=== PATIENT | female | born 1980 | race Caucasian/White ===

== ENCOUNTER → 2016-04-07 | Outpatient (CLI) | payer BC ==
--- OUTSIDE RECORDS SUMMARY | 2016-04-07 10:55 | XMS REPORT ---
Author MILAD Brenner Organization [employer] Address Unknown Phone Unavailable Care Team Providers Care Software Support Engineer Name Role Phone MILAD BLAKELY CP Unavailable Allergies, Adverse Reactions, Alerts Substance Reaction Event Type Vicodin vomiting Drug Allergy Problems No Known Problems Medications Medication Code System Code Instructions Start Date End Date Status Dosage [facility] [address]15 28-0.8 MG Orally not defined Metformin HCl [facility] [address]-64 500 MG Orally Twice a day 1 tablet with meals Results No Known Results Summary Purpose [employer] Submission
--- NOTE | 2016-04-07 12:10 | Diagnostic Imaging Report ---
EXAMINATION: Bilateral breast ultrasound. INDICATION: History of breast lumps in the past with no current complaints at this time. The patient is breast-feeding. COMPARISON: The previous mammogram report is available dated 09/30/2014 which described likely superimposition of parenchyma resulting in an asymmetry in the medial aspect of the right breast. FINDINGS: The four-quadrants and retroareolar region of each breast were scanned. Unremarkable breast parenchyma is seen with no solid mass or suspicious lesion. IMPRESSION: Negative study. The previous mammograms were requested to assess the previously described asymmetry in the medial aspect of the right breast and to decide if a diagnostic mammogram is needed. ACR BI-RADS Category 0: Incomplete. (Needs additional imaging evaluation). Dictated by: Dictated on workstation # [id number]
== END ==
LOC: RAD 10:51
PROVIDERS: ATTEND Family Medicine
DX: R92.8 Other abnormal and inconclusive findings on diagnostic imaging of breast (principal)

== ENCOUNTER → 2016-04-28 | Outpatient (CLI) | payer BC ==
--- NOTE | 2016-04-28 20:01 | Diagnostic Imaging Report ---
Bilateral diagnostic mammogram. The current study was also evaluated with a Computer Aided Detection (CAD) system. INDICATION: Breast lump. COMPARISON: 09/28/2014. FINDINGS: The breasts are composed of heterogeneously dense parenchyma in a diffuse fashion, which has increased in density compared to prior exam. This is symmetric bilaterally and is compatible with current status of . There is no suspicious mass that has developed or suspicious calcifications within the area of previously seen asymmetry in the central slightly medial aspect of the right CC projection. IMPRESSION: Increased density of the fibroglandular tissue bilaterally in a diffuse fashion related to with no definite suspicious lesion seen. ACR BI-RADS Category 2: Benign findings. Result letter will be mailed to the patient. Note: At least 10% of breast cancer is not imaged by mammography. Dictated by: Dictated on workstation # [id number]
== END ==
LOC: RAD 11:55
PROVIDERS: ATTEND Family Medicine
DX: N63 Unspecified lump in breast (principal)
CPT/HCPCS: 77066

== ENCOUNTER 2017-03-29 07:00 | Emergency (ER) | payer BC ==
[~2017-03-29] VITALS: Ht 167.6 cm; Wt 113.9 kg
--- OUTSIDE RECORDS SUMMARY | 2017-03-29 07:04 | XMS REPORT ---
Author Author MILAD BLAKELY [facility] Address [address] [place] [address] Care Team Providers Care Elephant Keeper Name Role Phone MILAD BLAKELY Unavailable PROBLEMS Type Condition ICD9-CM Code [id number] Code Onset Dates Condition Status SNOMED Code Problem Abnormal mammogram R92.8 Active 522947660 Problem Patient is a currently breast-feeding mother Z39.1 Active 974372962 Problem Abnormal bilirubin test E80.6 Active 279735056 Problem PCOS (polycystic ovarian syndrome) E28.2 Active 21909473 ALLERGIES No Information SOCIAL HISTORY Never Assessed PLAN OF CARE VITAL SIGNS MEDICATIONS Unknown Medications RESULTS Name Result Date Reference Range Mammogram Dx, Bilateral 2016-04-28 PROCEDURES No Known procedures IMMUNIZATIONS No Known Immunizations MEDICAL (GENERAL) HISTORY Type Description Date Medical History PCOS (Polycystic Ovary Syndrome) Surgical History cholecystectomy Surgical History left knee arthroscopy 1995 Surgical History inguinal hernia repair 1986 Surgical History wisdom teeth extraction 1997 Surgical History Tonsillectomy/Adenoidectomy Hospitalization History Childbirth Only
--- OUTSIDE RECORDS SUMMARY | 2017-03-29 07:04 | XMS REPORT ---
Author Author MILAD BLAKELY [facility] [employer] Address Unknown Phone Unavailable Care Team Providers Care Air Pollution Compliance Inspector Name Role Phone MILAD BLAKELY Unavailable Allergies No Known Allergies Problems Problem Type Condition Code Onset Dates Condition Status Assessment Routine follow-up Z39.2 Active Assessment PCOS (polycystic ovarian syndrome) E28.2 Active Problem PCOS (polycystic ovarian syndrome) E28.2 Active Medications No Known Medications Procedures Procedure Coding System Code Date ASSAY THYROID STIM HORMONE CPT-4 28627 Dec 25, 2015 COMPLETE CBC W/AUTO DIFF WBC CPT-4 68057 Dec 25, 2015 GLYCATED HEMOGLOBIN TEST CPT-4 71730 Dec 25, 2015 VENIPUNCT, ROUTINE* CPT-4 14357 Dec 25, 2015 COMPREHEN METABOLIC PANEL CPT-4 03426 Dec 25, 2015 Results Name Result Date Reference Range Unit Abnormality Flag TSH ----TSH 1.510 13009747 0.450-4.500 uIU/mL CBC ----Basos 1 48491909 % ----MCV 85 93096459 79-97 fL ----Hematocrit 42.3 19813358 34.0-46.6 % ----Eos 2 60659233 % ----MCHC 34.0 17641277 31.5-35.7 g/dL ----Monocytes 9 23148688 % ----MCH 29.0 08509544 26.6-33.0 pg ----Lymphs 36 87273963 % ----Eos (Absolute) 0.1 28075519 0.0-0.4 x10E3/uL ----WBC 6.0 75273402 3.4-10.8 x10E3/uL ----Monocytes(Absolute) 0.6 10009163 0.1-0.9 x10E3/uL ----Lymphs (Absolute) 2.2 90098833 0.7-3.1 x10E3/uL ----Hemoglobin 14.4 38684293 11.1-15.9 g/dL ----Neutrophils (Absolute) 3.1 57049685 1.4-7.0 x10E3/uL ----RBC 4.97 52034728 3.77-5.28 x10E6/uL ----Immature Grans (Abs) 0.0 26011374 0.0-0.1 x10E3/uL ----Immature Granulocytes 0 48699253 % ----Neutrophils 52 50468919 % ----Baso (Absolute) 0.0 77527985 0.0-0.2 x10E3/uL ----RDW 13.3 13582422 12.3-15.4 % ----Platelets 293 20104125 150-379 x10E3/uL ROUTINE VENIPUNCTURE A1C ----Hemoglobin A1c 5.4 44014096 4.8-5.6 % CMP ----Potassium, Serum 4.1 85147249 3.5-5.2 mmol/L ----Sodium, Serum 141 23928676 136-144 mmol/L ----BUN/Creatinine Ratio 22 20151225 8-20 H ----eGFR If Africn Am 117 55394749 >59 mL/min/1.73 ----eGFR If NonAfricn Am 101 70157688 >59 mL/min/1.73 ----Creatinine, Serum 0.76 35682419 0.57-1.00 mg/dL ----BUN 17 20151225 6-20 mg/dL ----Glucose, Serum 80 25699580 65-99 mg/dL ----AST (SGOT) 32 20151225 0-40 IU/L ----Globulin, Total 2.5 57635166 1.5-4.5 g/dL ----ALT (SGPT) 41 20151225 0-32 IU/L H ----A/G Ratio 1.8 20151225 1.1-2.5 ----Bilirubin, Total 1.6 11798166 0.0-1.2 mg/dL H ----Alkaline Phosphatase, S 86 57832521 39-117 IU/L ----Carbon Dioxide, Total 21 20151225 18-29 mmol/L ----Calcium, Serum 9.7 20151225 8.7-10.2 mg/dL ----Protein, Total, Serum 7.1 20151225 6.0-8.5 g/dL ----Albumin, Serum 4.6 20151225 3.5-5.5 g/dL ----Chloride, Serum 102 20151225 97-106 mmol/L Summary Purpose eClinicalWorks Submission
--- OUTSIDE RECORDS SUMMARY | 2017-03-29 07:04 | XMS REPORT ---
Author MILAD Brenner Organization [employer] Address Unknown Phone Unavailable Care Team Providers Care Wet Room Supervisor Name Role Phone MILAD BLAKELY CP Unavailable Allergies, Adverse Reactions, Alerts Substance Reaction Event Type Vicodin vomiting Drug Allergy Problems No Known Problems Medications Medication Code System Code Instructions Start Date End Date Status Dosage [facility] [address] 28-0.8 MG Orally not defined Metformin HCl [facility] [address]-31 500 MG Orally Twice a day 1 tablet with meals Results No Known Results Summary Purpose eClinicalWorks Submission
--- OUTSIDE RECORDS SUMMARY | 2017-03-29 07:04 | XMS REPORT ---
Author Author MILDA BLAKELY [facility] Address [address] [place] [address] Care Team Providers Care Manager Human Capital Name Role Phone MILAD BLAKELY Unavailable PROBLEMS Type Condition ICD9-CM Code UPZ82-IQ Code Onset Dates Condition Status SNOMED Code Problem Abnormal mammogram R92.8 Active 947928202 Problem Patient is a currently breast-feeding mother Z39.1 Active 956603795 Problem Abnormal bilirubin test E80.6 Active 401336196 Problem PCOS (polycystic ovarian syndrome) E28.2 Active 64032434 ALLERGIES No Information SOCIAL HISTORY Never Assessed PLAN OF CARE VITAL SIGNS MEDICATIONS Unknown Medications RESULTS Name Result Date Reference Range Ultrasound : Breast(s), Both 2016-04-07 PROCEDURES No Known procedures IMMUNIZATIONS No Known Immunizations MEDICAL (GENERAL) HISTORY Type Description Date Medical History PCOS (Polycystic Ovary Syndrome) Surgical History cholecystectomy Surgical History left knee arthroscopy 1995 Surgical History inguinal hernia repair 1986 Surgical History wisdom teeth extraction 1997 Surgical History Tonsillectomy/Adenoidectomy Hospitalization History Childbirth Only
--- OUTSIDE RECORDS SUMMARY | 2017-03-29 07:04 | XMS REPORT ---
Author Author MILAD BLAKELY [facility] Address [address] [place] [address] Care Team Providers Care Supervisor Hospitality House Name Role Phone MILAD BLAKELY Unavailable PROBLEMS Type Condition ICD9-CM Code JAM69-VC Code Onset Dates Condition Status SNOMED Code Problem Abnormal mammogram R92.8 Active 016681465 Problem Patient is a currently breast-feeding mother Z39.1 Active 041829685 Problem Abnormal bilirubin test E80.6 Active 522519475 Problem PCOS (polycystic ovarian syndrome) E28.2 Active 09199716 ALLERGIES Unknown Allergies SOCIAL HISTORY No smoking Hx information available PLAN OF CARE VITAL SIGNS MEDICATIONS Unknown Medications RESULTS No Results PROCEDURES No Known procedures IMMUNIZATIONS No Known Immunizations
--- OUTSIDE RECORDS SUMMARY | 2017-03-29 07:04 | XMS REPORT ---
Author Author MILAD BLAKELY Organization [facility] Address [address] [place] [address] Care Team Providers Care Laundry Laborer Name Role Phone MILAD BLAKELY Unavailable PROBLEMS Type Condition ICD9-CM Code LEO04-EH Code Onset Dates Condition Status SNOMED Code Problem Abnormal mammogram R92.8 Active 006645325 Problem Patient is a currently breast-feeding mother Z39.1 Active 873321482 Problem Abnormal bilirubin test E80.6 Active 544085668 Problem PCOS (polycystic ovarian syndrome) E28.2 Active 39145775 ALLERGIES Substance Reaction Event Type Date Status Vicodin vomiting/hallucinations Drug Allergy Feb, Active SOCIAL HISTORY Never Assessed PLAN OF CARE Activity Details Follow Up 1 Year with [place] for well woman Reason: VITAL SIGNS Height 65.5 in 2016-03-03 Weight 262.1 lbs 2016-03-03 Temperature 98.2 degrees Fahrenheit 2016-03-03 Heart Rate 84 bpm 2016-03-03 Respiratory Rate 20 2016-03-03 BMI 42.95 kg/m2 2016-03-03 Blood pressure systolic 124 mmHg 2016-03-03 Blood pressure diastolic 84 mmHg 2016-03-03 MEDICATIONS Medication Instructions Dosage Frequency Start Date End Date Duration Status Metformin HCl 500 MG Orally Twice a day 1 tablet with meals 12h 30 days Active [facility] - Active 28-0.8 MG Active Ortho Micronor 0.35 MG Orally Once a day 1 tablet 24h Nov, 30 day(s) Active RESULTS No Results PROCEDURES Procedure Date Ordered Result Body Site ASSAY THYROID STIM HORMONE Mar 03, 2016 GLYCATED HEMOGLOBIN TEST Mar 03, 2016 COMPREHEN METABOLIC PANEL Mar 03, 2016 LIPID PANEL Mar 03, 2016 VENIPUNCT, ROUTINE* Mar 03, 2016 IMMUNIZATIONS No Known Immunizations MEDICAL (GENERAL) HISTORY Type Description Date Medical History PCOS (Polycystic Ovary Syndrome) Surgical History cholecystectomy Surgical History left knee arthroscopy 1995 Surgical History inguinal hernia repair 1986 Surgical History wisdom teeth extraction 1997 Surgical History Tonsillectomy/Adenoidectomy Hospitalization History Childbirth Only
--- OUTSIDE RECORDS SUMMARY | 2017-03-29 07:04 | XMS REPORT ---
Author Author MILAD BLAKELY [facility] Address [address] [place] [address] Care Team Providers Care Heat Treater Apprentice Name Role Phone MILAD BLAKELY Unavailable PROBLEMS Type Condition ICD9-CM Code NLD92-EL Code Onset Dates Condition Status SNOMED Code Problem Abnormal mammogram R92.8 Active 443338946 Problem Patient is a currently breast-feeding mother Z39.1 Active 845575716 Problem Abnormal bilirubin test E80.6 Active 581262921 Problem PCOS (polycystic ovarian syndrome) E28.2 Active 48413208 ALLERGIES No Information SOCIAL HISTORY Never Assessed [...]
--- OUTSIDE RECORDS SUMMARY | 2017-03-29 07:04 | XMS REPORT ---
Author Author MILAD BLAKELY [facility] Address [address] [place] [address] Care Team Providers Care Benefits Clerk Name Role Phone MILAD BLAKELY Unavailable PROBLEMS Type Condition ICD9-CM Code ZTF12-SY Code Onset Dates Condition Status SNOMED Code Problem Abnormal mammogram R92.8 Active 256508301 Problem Patient is a currently breast-feeding mother Z39.1 Active 020368726 Problem Abnormal bilirubin test E80.6 Active 916146319 Problem PCOS (polycystic ovarian syndrome) E28.2 Active 63129593 ALLERGIES No Information SOCIAL HISTORY Never Assessed [...]
--- OUTSIDE RECORDS SUMMARY | 2017-03-29 07:04 | XMS REPORT ---
Author TRI Martinez [facility] e[employer] Address Unknown Phone Unavailable Care Team Providers Care Home Health Care Provider Name Role Phone TRI VIRK CP Unavailable Allergies No Known Allergies Problems Problem Type Condition Code Onset Dates Condition Status Assessment Encounter for immunization Z23 Active Problem PCOS (polycystic ovarian syndrome) E28.2 Active Medications No Known Medications Procedures Procedure Coding System Code Date SINGLE IMMUNIZATION ADMIN CPT-4 80227 Dec 10, 2015 FLUARIX QUAD P-FREE 3 AND UP .50 2015 CPT-4 37263 Dec 10, 2015 Results No Known Results Immunizations Vaccine Administration Date FLUARIX QUAD P-FREE 3 AND UP .50 2015Dec 10, 2015 Summary Purpose eClinicalWorks Submission
--- OUTSIDE RECORDS SUMMARY | 2017-03-29 07:04 | XMS REPORT ---
Author MILAD Brenner Organization [employer] Address Unknown Phone Unavailable Care Team Providers Care Yacht Hand Name Role Phone MILAD BLAKELY CP Unavailable Allergies, Adverse Reactions, Alerts Substance Reaction Event Type Vicodin vomiting/hallucinations Drug Allergy Problems Problem Type Condition Code Onset Dates Condition Status Assessment Routine follow-up Z39.2 Active Assessment PCOS (polycystic ovarian syndrome) E28.2 Active Problem PCOS (polycystic ovarian syndrome) E28.2 Active Medications Medication Code System Code Instructions Start Date End Date Status Dosage Metformin HCl [facility] [address]-95 500 MG Orally Twice a day 1 tablet with meals Ortho Micronor [facility] [address]-36 0.35 MG Orally Once a day Dec 06, 2015 1 tablet [facility] [address] 28-0.8 MG Orally not defined Procedures Procedure Coding System Code Date Office Visit, Est Pt., Level 3 CPT-4 66800 Dec 06, 2015 Vital Signs Date/Time: Dec 06, 2015 Cardiac Monitoring Heart Rate 76 bpm Weight 260.8 lbs Height 65.5 in BMI 42.73 Index Blood Pressure Diastolic 82 mmHg Blood Pressure Systolic 126 mmHg Results No Known Results Summary Purpose eClinicalWorks Submission
--- NOTE | 2017-03-29 07:43 | ED GU-Female ---
General Chief Complaint: -Female Stated Complaint: 11 WKS PREG/VAG BLEEDING Source: patient Exam Limitations: no limitations History of Present Illness Date Seen by Provider: Mar 29, 2017 Time Seen by Provider: 07:20 Initial Comments Here with report of spotting 2-3 days ago and then clearing up. Did have episodes of nausea and vomiting Thursday but that cleared yesterday. Through that time she had vague spotting but nothing significant. This morning she woke up with vaginal bleeding and clots. She reports that she is approximately 11 weeks and 2 days . She follows with Dr. Dorsey. Denies current nausea or vomiting. Denies significant abdominal pain currently. Timing/Duration: getting worse Severity/Quality: mild, cramping Location: suprapubic, vaginal Activities at Onset: none Associated Symptoms: abdominal pain, No fever/chills, No nausea/vomiting, No urinary frequency Allergies and Home Medications Allergies Coded Allergies: acetaminophen (Verified Allergy, Unknown, 03/29/17) hydrocodone (Verified Allergy, Unknown, 03/29/17) Constitutional: see HPI, No chills, No fever EENTM: no symptoms reported Respiratory: no symptoms reported Cardiovascular: no symptoms reported Gastrointestinal: no symptoms reported, abdominal pain Genitourinary: see HPI : Yes LMP: Mar 29, 2017 All Other Systemes Reviewed Negative Unless Noted: Yes Past Lsmulyo-Wirdud-Aniyeg Hx Patient Social History Alcohol Use: Denies Use Recreational Drug Use: No Smoking Status: Never a Smoker Recent Foreign Travel: No Contact w/Someone Who Travel: No Surgeries History of Surgeries: Yes Surgeries: Abdominal, Gallbladder, Orthopedic, Tonsillectomy Respiratory History of Respiratory Disorde: No Cardiovascular History of Cardiac Disorders: No Reviewed Nursing Assessment Reviewed/Agree w Nursing PMH: Yes Family Medical History Significant Family History: No Pertinent Family Hx Physical Exam Vital Signs Vital Signs - First Documented 03/29/17 07:10 Temp 97.5 Pulse 103 Resp 18 B/P (MAP) 139/96 (110) Pulse Ox 96 Capillary Refill : General Appearance: WD/WN, no apparent distress Cardiovascular: regular rate, rhythm, no murmur Respiratory: lungs clear, normal breath sounds Gastrointestinal: non tender, soft Back: normal inspection, no CVA tenderness, no vertebral tenderness Extremities: non-tender, normal inspection Neurologic/Psychiatric: alert, oriented x 3 Skin: normal color, warm/dry Progress/Results/Core Measures Suspected Sepsis SIRS Temperature: Pulse: Respiratory Rate: Laboratory Tests 03/29/17 08:14: White Blood Count 7.1 Blood Pressure / Mean: Laboratory Tests 03/29/17 08:14: Platelet Count 200 Results/Orders Lab Results Laboratory Tests Test 03/29/17 08:14 Range/Units White Blood Count 7.1 4.3-11.0 10^3/uL Red Blood Count 4.62 4.35-5.85 10^6/uL Hemoglobin 14.3 11.5-16.0 G/DL Hematocrit 40 35-52 % Mean Corpuscular Volume 87 80-99 FL Mean Corpuscular Hemoglobin 31 25-34 PG Mean Corpuscular Hemoglobin Concent 36 32-36 G/DL Red Cell Distribution Width 12.8 10.0-14.5 % Platelet Count 200 130-400 10^3/uL Mean Platelet Volume 10.7 H 7.4-10.4 FL Human Chorionic Gonadotropin, Quant 6026 H <5 MIU/ML My Orders Orders - MAGALIS WATT MD Hcg,Quantitative (03/29/17 07:36) Abo Rh Type (03/29/17 07:36) Us Ob Single Fetus<14 [id number] (03/29/17 07:36) Cbc No Diff (03/29/17 07:36) Vital Signs/I&O Vital Sign - Last 12Hours 03/29/17 07:10 Temp 97.5 Pulse 103 Resp 18 B/P (MAP) 139/96 (110) Pulse Ox 96 Capillary Refill : Progress Note : Progress Note Seen and evaluated. Bedside ultrasound performed by me shows pole at approximately 8 weeks and 3 days by crown-rump length without detectable tone. Patient informed. We will get basic labs as well as ABO Rh. Formal ultrasound ordered. Highly concerning for intrauterine demise. 0900: Formal ultrasound is complete. Findings of demise at 8 weeks and 6 days. This was discussed with the patient and her . I also discussed the case with Dr. Dorsey at 0905. I will send a copy of the chart to his office. He would like to see the patient tomorrow. She is to call the office in the morning for appointment time. All of this was discussed with the patient as well. Discharged home with return precautions. Patient verbalize understanding instructions and agreement with plan. Departure Impression Impression: Primary Impression: Incomplete miscarriage Disposition: 01 HOME, SELF-CARE Condition: Stable Departure-Patient Inst. Decision time for Depature: 09:17 Referrals: FREDDIE DORSEY DO (PCP) Primary Care Physician MARYLOU HUSTON MD (Family) Primary Care Physician Patient Instructions: Miscarriage (DC) Add. Discharge Instructions: All discharge instructions reviewed with patient and/or family. Voiced understanding. Call Dr. Dorsey's office in the morning for appointment tomorrow. Return for worse pain, fever, vomiting, bleeding greater than 2 large pads per hour for more than 2 hours or other concerns as needed. You may take ibuprofen 800 mg every 8 hours as needed for pain. You may take Tylenol/acetaminophen 1000 mg every 6 hours as needed for pain. Copy Copies To 1: FREDDIE DORSEY TIMOTHY D MD Mar 29, 2017 07:43
[2017-03-29 08:22] LABS: HEMOGLOBIN 14.3 G/DL (11.5-16.0); MEAN PLATELET VOLUME 10.7 FL (7.4-10.4); RED BLOOD COUNT 4.62 10^6/uL (4.35-5.85); RED CELL DISTRIBUTION WIDTH 12.8 % (10.0-14.5); WHITE BLOOD COUNT 7.1 10^3/uL (4.3-11.0)
[2017-03-29 09:23] VITALS: BP 139/96
--- NOTE | 2017-03-29 09:39 | Diagnostic Imaging Report ---
PROCEDURE: US OB SINGLE FETUS <14 WKS. TECHNIQUE: Multiple real-time grayscale images were obtained over the gravid uterus in various projections. INDICATION: Vaginal bleeding COMPARISON: None available FINDINGS: The uterus measures 13.4 x 7.4 cm. An intrauterine gestational sac is identified. A pole is identified within the gestational sac with a crown-rump length of 2.19 cm, which would be consistent with an estimated gestational age of 8 weeks and 6 days. However, no cardiac motion is identified at this time. No fluid collection underlying the gestational sac. No focal uterine mass. The bilateral ovaries were not visualized secondary to adjacent overlying bowel, though no abnormal adnexal mass lesion was seen. No significant free fluid. IMPRESSION: Single intrauterine gestation without cardiac motion is concerning for a spontaneous . Recommend followup beta hCG levels to ensure passage. Report given to Dr. Hendrix at 9:39 a.m. 03/29/2017/cb Dictated by: Dictated on workstation # [id number]
[2017-03-30] MEDS ORDERED: FERR-84 PO (07:28)
[2017-03-30] MEDS ORDERED: IBUP-1773 PO (11:23)
== END 2017-03-29 09:23 | disposition home or self-care (01) ==
LOC: EDUNIT# 07:00 → ER 07:01
DX: O03.4 Incomplete spontaneous abortion without complication (principal); Z3A.11 11 weeks gestation of pregnancy; Z88.8 Allergy status to other drugs, medicaments and biological substances; Z88.5 Allergy status to narcotic agent; Z90.89 Acquired absence of other organs
CPT/HCPCS: 36415; 76801; 84702; 85027; 86900; 86901; 99282

== ENCOUNTER 2017-03-29 16:29 | Observation (INO) | payer BC ==
[~2017-03-29] VITALS: Ht 167.6 cm; Wt 113.9 kg
[2017-03-29] VITALS: BP 92/54
[2017-03-29 16:57] LABS: BASOPHILS % (AUTO) 0 % (0-10); EOSINOPHILS # (AUTO) 0.1 10^3/uL (0.0-0.3); EOSINOPHILS % (AUTO) 2 % (0-10); HEMATOCRIT 37 % (35-52); HEMOGLOBIN 13.2 G/DL (11.5-16.0); LYMPHOCYTES # (AUTO) 1.5 X 10^3 (1.0-4.0); LYMPHOCYTES % (AUTO) 19 % (12-44); MEAN CORPUSCULAR HEMOGLOBIN 31 PG (25-34); MEAN CORPUSCULAR HGB CONC 36 G/DL (32-36); MEAN CORPUSCULAR VOLUME 86 FL (80-99); MEAN PLATELET VOLUME 10.6 FL (7.4-10.4); MONOCYTES # (AUTO) 0.8 X 10^3 (0.0-1.0); MONOCYTES % (AUTO) 10 % (0-12); NEUTROPHILS # (AUTO) 5.3 X 10^3 (1.8-7.8); NEUTROPHILS % (AUTO) 69 % (42-75); PLATELET COUNT 219 10^3/uL (130-400); RED BLOOD COUNT 4.25 10^6/uL (4.35-5.85); RED CELL DISTRIBUTION WIDTH 12.8 % (10.0-14.5); WHITE BLOOD COUNT 7.7 10^3/uL (4.3-11.0)
[2017-03-29 17:13] LABS: INR 1.1 (0.8-1.4); PROTHROMBIN TIME PATIENT 13.9 SEC (12.2-14.7)
[2017-03-29 17:21] LABS: ALANINE AMINOTRANSFERASE 44 U/L (0-55); ALKALINE PHOSPHATASE 57 U/L (40-136); BILIRUBIN,TOTAL 1.6 MG/DL (0.1-1.0); BUN/CREATININE RATIO 10; CARBON DIOXIDE 19 MMOL/L (21-32); CHLORIDE 108 MMOL/L (98-107); CREATININE SERUM 0.78 MG/DL (0.60-1.30); GFR ESTIMATED > 60; GLUCOSE 114 MG/DL (70-105); POTASSIUM 3.6 MMOL/L (3.6-5.0); SODIUM 137 MMOL/L (135-145); TOTAL PROTEIN 6.5 GM/DL (6.4-8.2)
[2017-03-29 17:33] VITALS: BP 112/93
[2017-03-29] MEDS ORDERED: LACTATED RINGERS 1,000 ML IV ONE (17:52)
[2017-03-29 18:25] VITALS: BP 132/89
--- NOTE | 2017-03-29 18:49 | ED GU-Female ---
General Chief Complaint: -Female Stated Complaint: MISCARRIAGE Nursing Triage Note: TO ED PER EMS FROM HOME WAS SEEN EARLER THIS AM IN ED. SONO SHOWED DEMISE. SPECIAL NEEDS BABYSITTER ONSET OF ABD CRAMPING AND HEAVY VAG BLEEDING. IS APX 11WEEKS PREG. ON ADMIT LG AMT OF VAG BLEEDING WITH CLOTS. Nursing Sepsis Screen: No Definite Risk (GILDA BUITRAGO) History of Present Illness Date Seen by Provider: Mar 29, 2017 Time Seen by Provider: 16:40 Initial Comments 36-year-old female was dismissed from the emergency department if 9: 30 this morning for miscarriage. At that time she was having minimal vaginal spotting, OB ultrasound showed demise at approximately 8 weeks. The patient is approximately 11-12 weeks gestation based on her 6 week ultrasound. She ate breakfast at approximately 10:30 this morning and had some chocolate at approximately noon today. She reports that approximately 1500 she took a shower and had a large amount of vaginal blood, lots and tissue. She became syncopal and continued to have arguments amounts of blood. She was brought to the emergency department via EMS. Vital signs are stable with pulse 90-105, she has normotensive. She is O+ blood type. She is tearful but denies need for anything related to anxiety or pain. Reports mild lower abdominal cramping. Normal saline infusing per IV. Timing/Duration: just prior to arrival Severity/Quality: mild Location: suprapubic, vaginal Radiation: none Activities at Onset: none Associated Symptoms: denies symptoms (GILDA BUITRAGO) Allergies and Home Medications Allergies Coded Allergies: acetaminophen (Verified Allergy, Unknown, 03/29/17) hydrocodone (Verified Allergy, Unknown, 03/29/17) Home Medications Ferrous Sulfate 325 Mg Tablet, 325 MG PO DAILY for 60 Days, #60 Prescribed by: WILLIE KRISHNAN on 03/30/17 0728 Ibuprofen 600 Mg Tablet, 600 MG PO Q6H PRN for PAIN, #30 Prescribed by: BERE WOOTEN on 03/30/17 1123 Constitutional: no symptoms reported, see HPI Genitourinary: see HPI, discharge (large amount of blood and clots) (GILDA BUITRAGO) All Other Systemes Reviewed Negative Unless Noted: Yes (GILDA BUITRAGO) Past Cerxgtd-Rsnjlj-Mcymnj Hx Patient Social History Alcohol Use: Denies Use Recreational Drug Use: No Smoking Status: Never a Smoker Recent Foreign Travel: No Contact w/Someone Who Travel: No Recent Infectious Disease Expo: No Recent Hopitalizations: No (BOZENAGILDA Maya) Surgeries History of Surgeries: Yes Surgeries: Abdominal, Gallbladder, Orthopedic, Tonsillectomy (GILDA BUITRAGO) Respiratory History of Respiratory Disorde: No (GILDA BUITRAGO) Cardiovascular History of Cardiac Disorders: No (GILDA BUITRAGO) Reproductive System Hx : 2 Hx Para: 1 Hx Reproductive Disorders: Yes Female Reproductive Disorders: Menstrual Problems, Polycystic Ovarian Dis (GILDA BUITRAGO) Genitourinary History of Genitourinary Disor: No (GILDA BUITRAGO) Reviewed Nursing Assessment Reviewed/Agree w Nursing PMH: Yes (BOZENAGILDA Maya) Family Medical History Significant Family History: No Pertinent Family Hx (GILDA BUITRAGO) Physical Exam Vital Signs Vital Signs - First Documented 03/29/17 16:30 Temp 97.4 Pulse 99 Resp 18 B/P (MAP) 141/9 (53) Pulse Ox 99 O2 Delivery Room Air (MAGALIS WATT MD) Vital Signs Capillary Refill : Less Than 3 Seconds (BOZENAGILDA) General Appearance: WD/WN, mild distress HEENT: PERRL/EOMI, normal ENT inspection Neck: non-tender, full range of motion, supple, normal inspection Cardiovascular: normal peripheral pulses, regular rate, rhythm Respiratory: chest non-tender, lungs clear, normal breath sounds Gastrointestinal: normal bowel sounds, non tender, soft Pelvic: normal external exam, no cerv. motion tender, discharge, vaginal bleeding Neurologic/Psychiatric: no motor/sensory deficits, alert, normal mood/affect, oriented x 3 Skin: normal color, warm/dry (BOZENAGILDA Maya) Progress/Results/Core Measures Suspected Sepsis Recent Fever Within 48 Hours: No Infection Criteria Present: None New/Unexplained Altered Menta: No Sepsis Screen: No Definite Risk Sepsis Diagnosis: SIRS Temperature:97.4 Pulse: 104 Respiratory Rate: 18 Laboratory Tests 03/29/17 16:45: White Blood Count 7.7 03/29/17 19:31: White Blood Count 8.2 Blood Pressure 132 /89 Mean: 103 Laboratory Tests 03/29/17 16:45: Creatinine 0.78, INR Comment 1.1, Platelet Count 219, Total Bilirubin 1.6H 03/29/17 19:31: Platelet Count 215 (GILDA BUITRAGOP) Results/Orders Lab Results Laboratory Tests Test 03/29/17 16:45 03/29/17 19:31 03/30/17 05:18 Range/Units White Blood Count 7.7 8.2 6.4 4.3-11.0 10^3/uL Red Blood Count 4.25 L 3.48 L 2.92 L 4.35-5.85 10^6/uL Hemoglobin 13.2 11.0 L 9.0 L 11.5-16.0 G/DL Hematocrit 37 30 L 26 L 35-52 % Mean Corpuscular Volume 86 86 88 80-99 FL Mean Corpuscular Hemoglobin 31 32 31 25-34 PG Mean Corpuscular Hemoglobin Concent 36 37 H 35 32-36 G/DL Red Cell Distribution Width 12.8 12.7 12.8 10.0-14.5 % Platelet Count 219 215 163 130-400 10^3/uL Mean Platelet Volume 10.6 H 10.9 H 10.6 H 7.4-10.4 FL Neutrophils (%) (Auto) 69 72 70 42-75 % Lymphocytes (%) (Auto) 19 18 19 12-44 % Monocytes (%) (Auto) 10 10 9 0-12 % Eosinophils (%) (Auto) 2 1 1 0-10 % Basophils (%) (Auto) 0 0 0 0-10 % Neutrophils # (Auto) 5.3 5.9 4.5 1.8-7.8 X 10^3 Lymphocytes # (Auto) 1.5 1.4 1.2 1.0-4.0 X 10^3 Monocytes # (Auto) 0.8 0.8 0.6 0.0-1.0 X 10^3 Eosinophils # (Auto) 0.1 0.1 0.1 0.0-0.3 10^3/uL Basophils # (Auto) 0.0 0.0 0.0 0.0-0.1 10^3/uL Prothrombin Time 13.9 12.2-14.7 SEC INR Comment 1.1 0.8-1.4 Activated Partial Thromboplast Time 28 24-35 SEC Sodium Level 137 135-145 MMOL/L Potassium Level 3.6 3.6-5.0 MMOL/L Chloride Level 108 H 98-107 MMOL/L Carbon Dioxide Level 19 L 21-32 MMOL/L Anion Gap 10 5-14 MMOL/L Blood Urea Nitrogen 8 7-18 MG/DL Creatinine 0.78 0.60-1.30 MG/DL Estimat Glomerular Filtration Rate > 60 BUN/Creatinine Ratio 10 Glucose Level 114 H 70-105 MG/DL Calcium Level 9.0 8.5-10.1 MG/DL Total Bilirubin 1.6 H 0.1-1.0 MG/DL Aspartate Amino Transf (AST/SGOT) 33 5-34 U/L Alanine Aminotransferase (ALT/SGPT) 44 0-55 U/L Alkaline Phosphatase 57 40-136 U/L Total Protein 6.5 6.4-8.2 GM/DL Albumin 4.0 3.2-4.5 GM/DL (MAGALIS WATT MD) Vital Signs/I&O Capillary Refill : Less Than 3 Seconds (GILDA BUITRAGO) Blood Pressure Mean: 103 Progress Note : Time: 16:40 Progress Note Initial evaluation completed, pelvic exam performed. Patient having vaginal bleeding and passing clots. Vital signs stable, normotensive and slightly tachycardic at 105. Normal saline IV 1 L wide open. Labs ordered. 1715 patient reports feeling abdominal cramping and then passing more clots, additional bleeding and multiple clots noted. . In the 90s. Patient declined need for anxiety or pain medication at this time. Brief assessment by Dr. Watt. 1740 patient reports additional abdominal cramping and then passing of clots. Hemoglobin down to 13.2, it was 14.3 this morning. Hematocrit 37. [address] Watt, attempted to reach Dr. Richards by phone. Discussed patient with Dr. Garcia by phone, recommended transvaginal ultrasound and Methergine 0.2 mg IM. Agent continuing to cramp and passed clots approximately every 10-15 minutes. 1815 ultrasound here for exam. [address] Garcia, ultrasound results discussed. Agreed to admission for observation with possible need for D&C in the morning. 1855 patient attempted to ambulate to toilet to urinate. Staff and has been present with her. Patient became syncopal while sitting on the toilet. Additional staff was called into room, patient lethargic and unable to respond. Patient lowered to the floor until adequate staff could be obtained to transfer her safely to the bed. Patient pale and diaphoretic. Dr. Watt present in room during syncopal event. 1909 Argueta catheter placed. Patient alert and oriented, no injury sustained. Patient more tearful and anxious, agreed Ativan 1 mg IV. 1929 no further vaginal bleeding or clots passed. Patient does report increased lower abdominal pain. Her abdomen is soft and nontender. Morphine 2 mg IV. Hemoglobin 11 and hematocrit 30, the patient has had 2-1/2 L of IV fluid, some of this decrease is attributed to dilutional. 2009 blood pressure 80/35, patient placed in Trendelenburg, D5 normal saline infusing wide open per IV. Patient alert, responsive and answering questions appropriately. 2014 blood pressure 106/62 patient complaining 10 used to be alert and oriented , no further vaginal bleeding or clots. Patient reassured. 2029 patient complaining of mild nausea, blood pressure maintained normotensive , Zofran 4 mg IV. 1999 patient admitted to women's services, no further needs at this time present. (GILDA BUITRAGO) Progress Note : Progress Note Patient was seen and evaluated by myself. I did discuss the case at length with Gilda Buitrago DNP. I have reviewed and agree with the plan of care. She returns after increased bleeding at home. Patient is continuing with miscarriage. Denies significant pain or needs for pain medication. She is somewhat anxious but declines antianxiety medicine. Patient did have syncopal event while sitting on the toilet. She did not fall and did not hit her head. She was assisted back to the bed. Argueta catheter was placed afterwards. Patient's bleeding had declined by this point. Admission is being pursued via Dr. Garcia. Ultrasound did not reveal retained products of conception at this point but thickened endometrium and patient will be admitted for further observation and medication to assist with completion of miscarriage. Although the findings, concerns and information were discussed with the patient and family who agree. Patient to be admitted. (MAGALIS WATT MD) Diagnostic Imaging Diagonstic Imaging: Ultrasound Plain Films/CT/US/NM/MRI: other (transvaginal) Comments NAME: CHERYL DURHAM [facility] REC#: [id number] PHYSICIAN: GILDA BUITRAGO CC: GILDA BUITRAGO; SARAH SNOWDEN DO Page 1 of 1 RADIOLOGY REPORT VIA [facility], [facility]. [place], [place] CC: GILDA BUITRAGO; SARAH SNOWDEN DO Page 1 of 1 RADIOLOGY REPORT NAME: CHERYL DURHAM [facility] REC#: [id number] PT STATUS: ADM Butch : 1980 PHYSICIAN: GILDA BUITRAGO ADMIT DATE: 03/29/17/WS Signed Date of Exam: 03/29/17 US OB<14 WKS SNGLE W/TRANSVAG INDICATION: Recent miscarriage. TECHNIQUE: Multiple real time huston scale sonographic images were obtained of the pelvis, transabdominal and endovaginally. CORRELATION STUDY: None. FINDINGS: The endometrium does appear to be abnormally thickened at approximately 1.8 cm. No definitive fluid collection. No suggestion for abnormal vascularity. Imaging of the adnexa demonstrates nonvisualization of either ovary. IMPRESSION: Limited pelvic ultrasound imaging does demonstrate abnormally thickened endometrium. Definitive blood flow to suggest retained products of conception is not suggested. However, given the severity of thickening, would recommend short-term followup imaging for reassessment as assessment is limited at this time. Dictated by: Dictated on workstation # [id number] Dict: 03/29/171923 Trans: 03/29/172215 Interpreted by: SARAH SNOWDEN DO Electronically signed by: SARAH SNOWDEN DO 03/29/172215 Reviewed: Reviewed by Me, Reviewed/Discussed (with Dr. Garcia and Dr. Watt) (GLIDA BUITRAGO) Departure Impression Impression: Primary Impression: Complete miscarriage Additional Impression: Vaginal bleeding before 22 weeks gestation Disposition: ADMITTED INPATIENT Condition: Stable Admissions Decision to Admit Reason: Admit from ER (General) Decision to Admit/Date: Mar 29, 2017 Time/Decision to Admit Time: 18:50 (GILDA BUITRAGO) Departure-Patient Inst. Referrals: FREDDIE RICHARDS DO (PCP) Primary Care Physician MARYLOU HUSTON MD (Family) Primary Care Physician Scripts Ibuprofen (Ibuprofen) 600 Mg Tablet 600 MG PO Q6H Y for PAIN, #30 TAB Prov: FREDDIE RICHARDS DO 03/30/17 Ferrous Sulfate (Iron) 325 Mg Tablet 325 MG PO DAILY for 60 Days, #60 TAB Prov: WILLIE GARCIA MD 03/30/17 Copy Copies To 1: FREDDIE RICHARDS AMY ARNP Mar 29, 2017 18:49 MAGALIS WATT MD Mar 31, 2017 10:21
[2017-03-29] MEDS: LACTATED RINGERS 1,000 ML IV ONE ×2 (18:50→20:06)
[2017-03-29] MEDS ORDERED: AMMONIA INHALATION 0.33 ML AMP ONE (19:03)
[2017-03-29] MEDS ORDERED: LORazepam INJ 2 MG/ML (ATIVAN) VIAL ONE (19:11)
[2017-03-29] MEDS ORDERED: METHYLERGONOVINE 0.2 MG/ML (METHERGINE) AMP IM ONE (19:15)
[2017-03-29] MEDS ORDERED: morphine INJ 10 MG/ML 1ML (SYR OR VIAL) IVP STA (19:34)
[2017-03-29 19:49] LABS: BASOPHILS % (AUTO) 0 % (0-10); EOSINOPHILS # (AUTO) 0.1 10^3/uL (0.0-0.3); EOSINOPHILS % (AUTO) 1 % (0-10); HEMATOCRIT 30 % (35-52); LYMPHOCYTES # (AUTO) 1.4 X 10^3 (1.0-4.0); LYMPHOCYTES % (AUTO) 18 % (12-44); MEAN CORPUSCULAR HEMOGLOBIN 32 PG (25-34); MEAN CORPUSCULAR HGB CONC 37 G/DL (32-36); MEAN CORPUSCULAR VOLUME 86 FL (80-99); MEAN PLATELET VOLUME 10.9 FL (7.4-10.4); MONOCYTES # (AUTO) 0.8 X 10^3 (0.0-1.0); MONOCYTES % (AUTO) 10 % (0-12); NEUTROPHILS # (AUTO) 5.9 X 10^3 (1.8-7.8); NEUTROPHILS % (AUTO) 72 % (42-75); PLATELET COUNT 215 10^3/uL (130-400); RED BLOOD COUNT 3.48 10^6/uL (4.35-5.85); RED CELL DISTRIBUTION WIDTH 12.7 % (10.0-14.5); WHITE BLOOD COUNT 8.2 10^3/uL (4.3-11.0)
--- NOTE | 2017-03-29 20:05 | Diagnostic Imaging Report ---
INDICATION: Recent miscarriage. TECHNIQUE: Multiple real time huston scale sonographic images were obtained of the pelvis, transabdominal and endovaginally. CORRELATION STUDY: None. FINDINGS: The endometrium does appear to be abnormally thickened at approximately 1.8 cm. No definitive fluid collection. No suggestion for abnormal vascularity. Imaging of the adnexa demonstrates nonvisualization of either ovary. IMPRESSION: Limited pelvic ultrasound imaging does demonstrate abnormally thickened endometrium. Definitive blood flow to suggest retained products of conception is not suggested. However, given the severity of thickening, would recommend short-term followup imaging for reassessment as assessment is limited at this time. Dictated by: Dictated on workstation # [id number]
[2017-03-29] MEDS ORDERED: D5 NS 1000 ML IV SOLUTION 1,000 ML IV ONE ×2 (20:08→20:09)
[2017-03-29] MEDS ORDERED: ONDANSETRON 4 MG (ZOFRAN) ORAL DISSOLVE TAB SL STA (20:09)
[2017-03-29] MEDS ORDERED: ONDANSETRON 4 MG/2 ML (SDV) Z0FRAN ONE (20:19)
[2017-03-29 20:30] VITALS: BP 93/52
[2017-03-29] MEDS ORDERED: ONDANSETRON 4 MG/2 ML (SDV) Z0FRAN IVP ONE (20:30)
[2017-03-29] MEDS: D5 NS 1000 ML IV SOLUTION 1,000 ML IV SCH (20:30)
[2017-03-30] VITALS: BP 92/54
[2017-03-30] MEDS: D5 NS 1000 ML IV SOLUTION 1,000 ML IV SCH (01:57)
[2017-03-30 03:57] VITALS: BP 99/55
[2017-03-30 05:27] LABS: BASOPHILS % (AUTO) 0 % (0-10); EOSINOPHILS # (AUTO) 0.1 10^3/uL (0.0-0.3); EOSINOPHILS % (AUTO) 1 % (0-10); HEMATOCRIT 26 % (35-52); LYMPHOCYTES # (AUTO) 1.2 X 10^3 (1.0-4.0); LYMPHOCYTES % (AUTO) 19 % (12-44); MEAN CORPUSCULAR HEMOGLOBIN 31 PG (25-34); MEAN CORPUSCULAR HGB CONC 35 G/DL (32-36); MEAN CORPUSCULAR VOLUME 88 FL (80-99); MEAN PLATELET VOLUME 10.6 FL (7.4-10.4); MONOCYTES # (AUTO) 0.6 X 10^3 (0.0-1.0); MONOCYTES % (AUTO) 9 % (0-12); NEUTROPHILS # (AUTO) 4.5 X 10^3 (1.8-7.8); NEUTROPHILS % (AUTO) 70 % (42-75); PLATELET COUNT 163 10^3/uL (130-400); RED BLOOD COUNT 2.92 10^6/uL (4.35-5.85); RED CELL DISTRIBUTION WIDTH 12.8 % (10.0-14.5); WHITE BLOOD COUNT 6.4 10^3/uL (4.3-11.0)
[2017-03-30] MEDS ORDERED: FERR-84 PO (07:28)
--- NOTE | 2017-03-30 07:30 | Discharge Instructions ---
Discharge Instructions Discharge Medications New, Converted or Re-Newed RX: RX on Chart Patient Instructions Patient Instructions: As directed Return to The Hospital For: As directed Activity & Diet Discharge Diet: No Restrictions Activity as Tolerated: Yes Orders-Post D/C & Referrals Follow Up Appt: Call to make follow up appt. for patient in [address] Richards. Activity: as tolerated. Diet: As tolerated-Clear Liquids only if nauseated. may shower or tub bathe as desired. Patient to return to the clinic as soon as possible for: Temperature greater than 101F, Severe Pain, Foul discharge from incision or vagina, Excessive Bleeding (more than a period). WILLIE PEDRAZA MD Mar 30, 2017 7:30 am
--- NOTE | 2017-03-30 07:36 | History & Physical ---
History and Physical Date Seen by Provider: Mar 30, 2017 Time Seen by Provider: 07:30 This patient is a 36-year-old white female patient of Dr. Richards who was seen in the emergency department yesterday morning for threatened . She was found to have a nonviable . She was sent home with instructions that she would miscarry and that she can follow up with her doctor. She returned to the ED several hours later. She very heavy bleeding and passing large clots. I was called with the request to come in to do a D&C. A repeat ultrasound was obtained prior to calling surgery crew and the finding was that the uterus was empty. This obviated the need for a D&C. As patient was still bleeding she was given a dose of Methergine to good effect and her bleeding resolved. She had received 3 L of IV fluids during her time in the ED as expected her hemoglobin had decreased some and that response to that. A repeat hemoglobin this morning was at a level of 9 versus the 13 when she was in on Thursday morning she is completely stable at this point. Bleeding is minimal. Patient denies headache, denies shortness of breath, denies nausea vomiting, denies chest pain. Patient understands that she has miscarried and that based on the ultrasound miscarried should have been complete. She does understand that she will have what may be a very heavy menstrual periods and another 10 days or 2 weeks as her body recovers from her loss Allergies are to acetaminophen and hydrocodone Laboratory Tests Test 03/29/17 16:45 03/29/17 19:31 03/30/17 05:18 Range/Units White Blood Count 7.7 8.2 6.4 4.3-11.0 10^3/uL Red Blood Count 4.25 L 3.48 L 2.92 L 4.35-5.85 10^6/uL Hemoglobin 13.2 11.0 L 9.0 L 11.5-16.0 G/DL Hematocrit 37 30 L 26 L 35-52 % Mean Corpuscular Volume 86 86 88 80-99 FL Mean Corpuscular Hemoglobin 31 32 31 25-34 PG Mean Corpuscular Hemoglobin Concent 36 37 H 35 32-36 G/DL Red Cell Distribution Width 12.8 12.7 12.8 10.0-14.5 % Platelet Count 219 215 163 130-400 10^3/uL Mean Platelet Volume 10.6 H 10.9 H 10.6 H 7.4-10.4 FL Neutrophils (%) (Auto) 69 72 70 42-75 % Lymphocytes (%) (Auto) 19 18 19 12-44 % Monocytes (%) (Auto) 10 10 9 0-12 % Eosinophils (%) (Auto) 2 1 1 0-10 % Basophils (%) (Auto) 0 0 0 0-10 % Neutrophils # (Auto) 5.3 5.9 4.5 1.8-7.8 X 10^3 Lymphocytes # (Auto) 1.5 1.4 1.2 1.0-4.0 X 10^3 Monocytes # (Auto) 0.8 0.8 0.6 0.0-1.0 X 10^3 Eosinophils # (Auto) 0.1 0.1 0.1 0.0-0.3 10^3/uL Basophils # (Auto) 0.0 0.0 0.0 0.0-0.1 10^3/uL Prothrombin Time 13.9 12.2-14.7 SEC INR Comment 1.1 0.8-1.4 Activated Partial Thromboplast Time 28 24-35 SEC Sodium Level 137 135-145 MMOL/L Potassium Level 3.6 3.6-5.0 MMOL/L Chloride Level 108 H 98-107 MMOL/L Carbon Dioxide Level 19 L 21-32 MMOL/L Anion Gap 10 5-14 MMOL/L Blood Urea Nitrogen 8 7-18 MG/DL Creatinine 0.78 0.60-1.30 MG/DL Estimat Glomerular Filtration Rate > 60 BUN/Creatinine Ratio 10 Glucose Level 114 H 70-105 MG/DL Calcium Level 9.0 8.5-10.1 MG/DL Total Bilirubin 1.6 H 0.1-1.0 MG/DL Aspartate Amino Transf (AST/SGOT) 33 5-34 U/L Alanine Aminotransferase (ALT/SGPT) 44 0-55 U/L Alkaline Phosphatase 57 40-136 U/L Total Protein 6.5 6.4-8.2 GM/DL Albumin 4.0 3.2-4.5 GM/DL Patient is now somewhat anemic and this is likely due to dilutional effect primarily and blood loss secondarily Physical exam shows a normal abdomen Extremities are normal Pelvic exam is deferred Assessment and plan status post SAB very likely complete at this point plan will be for discharge home with follow-up in clinic. Patient will be started on iron for her mixed dilutional and blood loss anemia SAB Allergies and Home Medications Allergies Coded Allergies: acetaminophen (Verified Allergy, Unknown, 03/29/17) hydrocodone (Verified Allergy, Unknown, 03/29/17) Home Medications Ferrous Sulfate 325 Mg Tablet, 325 MG PO DAILY for 60 Days, #60 Prescribed by: WILLIE KRISHNAN on 03/30/17 0728 WILLIE PEDRAZA MD Mar 30, 2017 7:36 am
[2017-03-30 09:45] VITALS: BP 103/71
[2017-03-30] MEDS ORDERED: IBUP-1773 PO (11:23)
[2017-03-30] MEDS ORDERED: IBUPROFEN 600 MG (MOTRIN) TAB PO PRN (11:30)
[2017-03-30 13:12] VITALS: BP 103/73
== END 2017-03-30 07:28 | disposition home or self-care (01) ==
LOC: EDUNIT# 16:29 → ER 16:31 → UNDOADMOB 19:15 → WS 19:15 → UNDODISOB 03-30 13:28
PROVIDERS: ADMIT Obstetrics & Gynecology; ATTEND Obstetrics & Gynecology
DX: O03.6 Delayed or excessive hemorrhage following complete or unspecified spontaneous abortion (principal); D62 Acute posthemorrhagic anemia; D64.89 Other specified anemias
CPT/HCPCS: 36415; 76801; 76817; 80053; 85025; 85610; 85730; 86850; 86900; 86901; 86920; 96360; 96361; 96372; 96374; 96375; 99284; G0378